=== PATIENT | male | born 1955 | race Caucasian/White ===

== ENCOUNTER 2021-12-12 14:05 | Outpatient (CLI) | payer BC, SELFPAY ==
--- NOTE | 2021-12-12 13:53 | DI.RAD_ITS ---
Exam(s) XR KNEE LT 4V AP,LAT,CHARLOTTE,PAT EXAM: XR KNEE LT 4V AP,LAT,CHAR[place]OTTE,PAT CLINICAL HISTORY: eval L knee pain. TECHNIQUE: 2D digital imaging was performed. COMPARISON: No exams were available for comparison FINDINGS: Four views: There is no evidence of fracture although there appears to be a joint effusion. Tricompartmental the re are degenerative changes evident in the medial lateral compartments moderate joint space narrowing medial compartment mild joint space narrowing in the lateral compartment and chondrocalcinosis in carolyn th of these compartments. The patellofemoral compartment is relatively well preserved although does exhibit some chondrocalcinosis. There are no ominous osseous lesions. Bone density is age-appropria te. IMPRESSION: Degenerative changes as described above. Most evident in the medial compartment. Chondral calcinosis. DATA REPOSITORY: RADIATION DOSE DELIVERED:
== END 2021-12-12 14:06 | disposition home or self-care (01) ==
LOC: DIORS 14:05
PROVIDERS: PCP Neuromusculoskeletal Medicine & OMM; Referring Provider Neuromusculoskeletal Medicine & OMM; Visit Provider Student in an Organized Health Care Education/Training Program
DX: M17.12 Unilateral primary osteoarthritis, left knee (principal)
CPT/HCPCS: 73564

== ENCOUNTER 2024-05-16 09:10 | Outpatient (REF) | payer MEDICARE, BC, SELFPAY ==
[2024-05-16 11:41] LABS: Clarity Clear; Nucleated Cells 141 uL (0)
[2024-05-16 11:42] LABS: Mononuclear Cells 96 %; Polynuclear Cells 4 %
[2024-05-16 11:43] LABS: Crystals (BF) No Crystals seen
== END 2024-05-16 09:11 | disposition home or self-care (01) ==
LOC: LBN 09:10
PROVIDERS: PCP Specialist/Technologist Athletic Trainer; Visit Provider Physician Assistant
DX: M25.461 Effusion, right knee (principal)
CPT/HCPCS: 87070; 87205; 89051; 89060

== ENCOUNTER 2024-05-16 09:12 | Outpatient (CLI) | payer MEDICARE, BC, SELFPAY ==
--- NOTE | 2024-05-16 08:30 | DI.RAD_ITS ---
Exam(s) XR KNEE RT 4V AP,LAT,CHARLOTTE,PAT EXAM: XR KNEE RT 4V AP,LAT,[place]OT[place],PAT CLINICAL HISTORY: R knee pain. TECHNIQUE: 2D digital imaging was performed. Four views. COMPARISON: CR XR KNEE LT 4V AP,LAT,CHARLOTTE,PAT from 12/12/2021 FINDINGS: BONES: No acute fracture is present. No bony destructive lesion is seen. JOINTS: Moderate narrowing of the medial femoral tibial joint space. Minimal periarticular spurring. Mild narrowing of the lateral patellofemoral joint and mild lateral spurring. A small joint effusi on is seen. SOFT TISSUE: Normal vascular calcifications. 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 Mild degenerative changes of the p atellofemoral joint. DATA REPOSITORY: RADIATION DOSE DELIVERED:
== END 2024-05-16 09:13 | disposition home or self-care (01) ==
LOC: DIORS 09:13
PROVIDERS: PCP Specialist/Technologist Athletic Trainer; Visit Provider Physician Assistant
DX: M25.461 Effusion, right knee; M17.11 Unilateral primary osteoarthritis, right knee
CPT/HCPCS: 20610; 99214; J1010; 73564

== ENCOUNTER → 2024-08-15 10:40 | Outpatient (BNVA) | payer MEDICARE, BC, SELFPAY | PROVIDERS: PCP Specialist/Technologist Athletic Trainer; Referring Provider Specialist/Technologist Athletic Trainer; Visit Provider Physician Assistant | DX: M17.11 Unilateral primary osteoarthritis, right knee (principal) | CPT/HCPCS: 20610; J1010 ==

== ENCOUNTER → 2024-10-30 08:03 | Outpatient (BNVA) | payer MEDICARE, BC, SELFPAY | PROVIDERS: PCP Specialist/Technologist Athletic Trainer; Referring Provider Specialist/Technologist Athletic Trainer; Visit Provider Student in an Organized Health Care Education/Training Program | DX: M17.0 Bilateral primary osteoarthritis of knee (principal) | CPT/HCPCS: 99213 ==